=== PATIENT | male | born 1980 | race Caucasian/White ===

== ENCOUNTER → 2020-06-18 | Outpatient (CLI) | payer OTHER ==
--- NOTE | 2020-06-18 21:07 | ECGEPIP ---
[facility] Test Date: 2020-06-18 Pat Name: CHRIS WOOTEN Department: Room: - Gender: Male [employer] Hel[employer]: serge : 1980 Requested By: Carlos Sewell Order Number: [id number] Reading MD: Gordo Canela Measurements Intervals [place] Rate: 72 P: 75 AK: 146 QRS: 89 QRSD: 88 T: 70 QT: 384 QTc: 420 Interpretive Statements Normal sinus rhythm Within normal limits. No prior ECG available for comparison at the time of interpretation. Electronically Signed on 06-18-2020 21:06:47 EDT by Gordo Canela
== END ==
LOC: M EKG 12:35
PROVIDERS: ATTEND Orthopaedic Surgery
DX: Z01.810 Encounter for preprocedural cardiovascular examination (principal)

== ENCOUNTER → 2022-04-26 | Outpatient (CLI) | payer OTHER ==
[~2022-04-26] MED LIST: LIDOCAINE 1% MDV 20ML VIAL As Ordered ONE; TRIAMCINOLONE ACETONIDE SUSP 40MG/ML 1ML VIAL As Ordered ONE
== END ==
LOC: M IRPRO 10:43
PROVIDERS: ATTEND Orthopaedic Surgery
DX: M75.22 Bicipital tendinitis, left shoulder (principal)
CPT/HCPCS: 20550; 76942; J3301